=== PATIENT | female | born 1985 | race Hispanic/Latino ===

== ENCOUNTER 2017-06-07 07:26 | Day surgery (SDC) | payer OTHER ==
[2017-06-03 09:18] VITALS: BMI 25.7
[2017-06-07] MEDS ORDERED: Propofol 10 mg/ml Inj (20 ML) ONE ×4 (07:56→08:43)
[2017-06-07] MEDS ORDERED: Lactated Ringer's 1,000 ML IV SCH (09:28)
[2017-06-07 09:43] VITALS: BP 107/66; PULSE 81; RESP 16; TEMP 97.6; O2SAT 100
== END 2017-06-07 10:14 | disposition home or self-care (01) ==
LOC: ENDO 07:26
PROVIDERS: ATTEND Internal Medicine Gastroenterology
DX: K63.5 Polyp of colon (principal); K64.0 First degree hemorrhoids; K59.00 Constipation, unspecified
CPT/HCPCS: 45380; 45385; 88305; J2001; J2704; J7040; J7120

== ENCOUNTER 2017-11-29 08:36 | Day surgery (SDC) | payer BC, OTHER ==
[2017-11-12 12:19] VITALS: BMI 27.6
[2017-11-29] MEDS ORDERED: Propofol 10 mg/ml Inj (20 ML) ONE (09:26)
[2017-11-29] MEDS ORDERED: Sodium Chloride 0.9% 1,000 ML IV SCH (09:45)
[2017-11-29 10:26] VITALS: BP 115/60; PULSE 64; RESP 15; TEMP 96.4; O2SAT 98
== END 2017-11-29 10:51 | disposition home or self-care (01) ==
LOC: ENDO 08:36
PROVIDERS: ATTEND Internal Medicine Gastroenterology
DX: K29.70 Gastritis, unspecified, without bleeding (principal); B96.81 Helicobacter pylori [H. pylori] as the cause of diseases classified elsewhere; R14.0 Abdominal distension (gaseous); K59.09 Other constipation
CPT/HCPCS: 43239; 84703; 88305; 88342; J2704; J7040 ×2